=== PATIENT | female | born 1995 | race Caucasian/White ===

== ENCOUNTER 2017-07-13 14:52 | Emergency (ER) | payer SELFPAY ==
[~2017-07-13] VITALS: Ht 142.2 cm; Wt 78.2 kg
[2017-07-13 14:56] VITALS: BP 142/55
[2017-07-13] MEDS ORDERED: PROAIR HFA8.5 GM IH (16:07)
[2017-07-13] MEDS ORDERED: PREDNISONE10 M1 PO (16:07)
== END 2017-07-13 16:31 | disposition home or self-care (01) ==
LOC: EME 14:52
DX: J06.9 Acute upper respiratory infection, unspecified (principal); F17.200 Nicotine dependence, unspecified, uncomplicated
CPT/HCPCS: 71046; 99281; 99283

== ENCOUNTER 2017-07-27 02:32 | Emergency (ER) | payer SELFPAY ==
[~2017-07-27] VITALS: Ht 160 cm; Wt 77.8 kg
[~2017-07-27 02:32] MED LIST: PREDNISONE10 M1 PO; PROAIR HFA8.5 GM IH
[2017-07-27 11:32] VITALS: BP 108/56
== END 2017-07-27 11:35 | disposition home or self-care (01) ==
LOC: EME → EDBD 02:32 → EME 11:35
DX: F10.129 Alcohol abuse with intoxication, unspecified (principal); R11.2 Nausea with vomiting, unspecified; Y90.7 Blood alcohol level of 200-239 mg/100 ml; F17.200 Nicotine dependence, unspecified, uncomplicated
CPT/HCPCS: 99281; 99285; G0480; J2405; J7030

== ENCOUNTER 2017-08-10 02:39 | Emergency (ER) | payer SELFPAY ==
[~2017-08-10] VITALS: Ht 142.2 cm; Wt 71.8 kg
[2017-08-10] MEDS ORDERED: PREDNISONE20 MG PO (03:17)
[2017-08-10] MEDS ORDERED: ZITHROMAX Z-PA250 MG PO (03:17)
[2017-08-10] MEDS ORDERED: PROVENTIL HFA6.7 GM IH (03:17)
[2017-08-10 04:00] VITALS: BP 130/75
== END 2017-08-10 04:02 | disposition home or self-care (01) ==
LOC: EME 02:39
DX: J20.9 Acute bronchitis, unspecified (principal); F17.200 Nicotine dependence, unspecified, uncomplicated
CPT/HCPCS: 94640; 99281; 99284; J7512

== ENCOUNTER 2017-12-21 09:03 | Emergency (ER) | payer SELFPAY ==
[~2017-12-21] VITALS: Ht 142.2 cm; Wt 67.0 kg
[~2017-12-21 09:03] MED LIST changes: +PREDNISONE20 MG PO; +PROVENTIL HFA6.7 GM IH; +ZITHROMAX Z-PA250 MG PO
[2017-12-21] MEDS ORDERED: AUGMENTIN875 MG PO (10:32)
[2017-12-21] MEDS ORDERED: MOTRIN800 MG PO (10:34)
[2017-12-21 11:46] VITALS: BP 141/87
== END 2017-12-21 11:46 | disposition home or self-care (01) ==
LOC: EME 09:03
DX: S61.253A Open bite of left middle finger without damage to nail, initial encounter (principal); S00.83XA Contusion of other part of head, initial encounter; S60.229A Contusion of unspecified hand, initial encounter; Y04.2XXA Assault by strike against or bumped into by another person, initial encounter; Y04.1XXA Assault by human bite, initial encounter; Y93.01 Activity, walking, marching and hiking; F17.200 Nicotine dependence, unspecified, uncomplicated
CPT/HCPCS: 70450; 72125; 73030; 73130; 99281; 99284